=== PATIENT | male | born 1985 | race Caucasian/White ===

== ENCOUNTER 2016-09-09 23:46 | Emergency (ER) | payer OTHER ==
[~2016-09-09] VITALS: Ht 165.1 cm; Wt 86.2 kg
[2016-09-10] VITALS: BP_SYST 127
--- NOTE | 2016-09-10 00:09 | NUR ---
Patient triaged and placed in waiting room. VSS and patient appears in no acute distress at this time. Accompanied by Father, awaiting available bed, and MD notified of need for MSE.
[2016-09-10 00:42] LABS: BASOPHILS # (AUTO) 0.1 K/uL (0.0-0.2); BASOPHILS % (AUTO) 0.6 % (0.0-2.0); EOSINOPHILS # (AUTO) 0.3 K/uL (0.0-0.4); EOSINOPHILS % (AUTO) 2.1 % (0.0-4.0); HEMATOCRIT 44.5 % (36-54); HEMOGLOBIN 14.6 g/dL (14.0-18.0); LYMPHOCYTES # (AUTO) 4.1 K/uL (1.0-5.5); LYMPHOCYTES % (AUTO) 34.1 % (20.5-51.5); MEAN CORPUSCULAR HEMOGLOBIN 26 pg (27-31); MEAN CORPUSCULAR HGB CONC 33 % (32-36); MEAN CORPUSCULAR VOLUME 78 fL (79.0-98.0); MONOCYTES # (AUTO) 0.9 K/uL (0.0-1.0); MONOCYTES % (AUTO) 7.1 % (1.7-9.3); NEUTROPHILS # (AUTO) 6.6 K/uL (1.8-7.7); NEUTROPHILS % (AUTO) 56.1 % (40.0-70.0); PLATELET COUNT (AUTO) 362 K/uL (130-430); RED BLOOD CELL COUNT(AUTO) 5.69 MIL/uL (4.2-6.2); RED CELL DISTRIBUTION WIDTH 12.8 % (9.0-15.0)
[2016-09-10 00:46] LABS: CALCIUM 8.8 mg/dL (8.4-11.0); CREATININE 1.34 mg/dL (0.55-1.30); POTASSIUM 4.1 mmol/L (3.5-5.1)
[2016-09-10 00:51] LABS: ALBUMIN 4.1 g/dL (3.4-4.8); TOTAL BILIRUBIN 0.2 mg/dL (0.0-1.0); TOTAL PROTEIN, SERUM 7.9 g/dL (6.4-8.3)
--- NOTE | 2016-09-10 01:25 | NUR ---
Placed in room 06 . Placed on awning hanger, blood pressure machine and pulse oximeter. To gown for exam. Side rails up. Report given to ZENIA Skinner.
--- NOTE | 2016-09-10 01:30 | NUR ---
Pt states having pain in R lower abdomen area, pain scale 8/10 that does not radiate. Pt states pain has been present since. Pt states having loose stools, denies nausea and vomiting at this time. Pt states pain worsens on moderate palpation. Pt denies any other complaints.
--- NOTE | 2016-09-10 01:50 | NUR ---
ER Dr. Adams at bedside examining patient.
[2016-09-10 01:52] LABS: BILIRUBIN,URINE NEGATIVE (NEGATIVE); BLOOD, URINE NEGATIVE (NEGATIVE); CLARITY/URINE SL HAZY (CLEAR); COLOR,URINE YELLOW (YELLOW); GLUCOSE,URINE NEGATIVE (NEGATIVE); KETONES,URINE NEGATIVE (NEGATIVE); LEUKOCYTE ESTERASE ,URINE NEGATIVE (NEGATIVE); NITRITE, URINE NEGATIVE (NEGATIVE); PROTEIN URINE NEGATIVE (NEGATIVE); UROBILINOGEN,URINE 0.2 (0.2-1.0)
[2016-09-10 02:10] LABS: PROTHROMBIN TIME 10.4 SECS (9.5-12.5)
--- NOTE | 2016-09-10 02:45 | NUR ---
# 22 gauge angiocath placed to R wrist. Use of asceptic technique. Blood return noted. Flushed with 10 cc of normal saline. No evidence of infiltration noted. Patient tolerated well.
--- NOTE | 2016-09-10 03:04 | NUR ---
Pt stable, no signs of distress noted. Will continue to monitor pt.
[2016-09-10 05:10] VITALS: BP_SYST 120
--- NOTE | 2016-09-10 05:10 | NUR ---
Patient given written and verbal discharge instructions and verbalizes understanding. ER MD discussed with patient the results and treatment provided. Patient in stable condition. ID arm band removed. IV catheter removed intact and dressing applied, no active bleeding. Rx of IBUPROFEN given. Patient educated on pain management and to follow up with PMD. Pain Scale 0/10. Opportunity for questions provided and answered.
== END 2016-09-10 05:10 | disposition home or self-care (01) ==
LOC: SED 23:46
DX: R10.30 Lower abdominal pain, unspecified (principal); R30.9 Painful micturition, unspecified; R11.0 Nausea
CPT/HCPCS: 36415; 80053; 81003; 82272; 83690-TC; 85025; 85610-TC; 85730-TC; 99284

== ENCOUNTER 2020-04-04 20:28 | Emergency (ER) | payer MEDICAID, OTHER ==
[~2020-04-04] VITALS: Ht 165.1 cm; Wt 108.9 kg
[2020-04-04 20:30] VITALS: BP_SYST 129
[2020-04-04] MEDS ORDERED: KETOROLAC TROMETHAMINE 60 MG/2 ML VIAL IM ONE (21:15)
[2020-04-04] MEDS ORDERED: IBUP-1971 PO (21:46)
[2020-04-04 22:02] VITALS: BP_SYST 127
== END 2020-04-04 22:02 | disposition home or self-care (01) ==
LOC: SED 20:28
DX: S93.491A Sprain of other ligament of right ankle, initial encounter (principal); J45.909 Unspecified asthma, uncomplicated; Z88.1 Allergy status to other antibiotic agents; V29.9XXA Motorcycle rider (driver) (passenger) injured in unspecified traffic accident, initial encounter; Y93.89 Activity, other specified; Y92.413 State road as the place of occurrence of the external cause; Y99.8 Other external cause status
CPT/HCPCS: 99283